=== PATIENT | female | born 1990 | race Caucasian/White ===

== ENCOUNTER 2025-05-25 07:50 | Emergency (ER) | payer OTHER ==
[~2025-05-25] VITALS: Ht 165.1 cm; Wt 72.6 kg
[2025-05-25 07:53] VITALS: BP 133/89
[2025-05-25] MEDS ORDERED: LIDOCAINE 2%-EPI 1:100,000 20 ML VIAL ONE (08:04)
[2025-05-25] MEDS ORDERED: TDAP DIPH,PERTUSS,TET VAC/PF 0.5 ML DISP.SYRIN IM ONE (08:05)
[2025-05-25] MEDS: LIDOCAINE 2%-EPI 1:100,000 20 ML VIAL IJ ONE (08:12)
[2025-05-25] MEDS: TDAP DIPH,PERTUSS,TET VAC/PF 0.5 ML DISP.SYRIN IM ONE (08:17)
[2025-05-25] MEDS ORDERED: NEOMY/BACITRA/POLYMYXIN B OINT UD PACKET TP ONE (08:47)
[2025-05-25] MEDS: NEOMY/BACITRA/POLYMYXIN B OINT UD PACKET TP ONE (08:48)
[2025-05-25 09:16] VITALS: BP 121/77; O2SAT 97
== END 2025-05-25 09:17 | disposition home or self-care (01) ==
LOC: ER 07:50
DX: S61.512A Laceration without foreign body of left wrist, initial encounter (principal); X58.XXXA Exposure to other specified factors, initial encounter; Y93.G1 Activity, food preparation and clean up; Y92.89 Other specified places as the place of occurrence of the external cause; Y99.8 Other external cause status
CPT/HCPCS: 90715; A4606; A4663

== ENCOUNTER 2025-06-05 08:15 | Emergency (ER) | payer OTHER ==
[~2025-06-05] VITALS: Ht 165.1 cm; Wt 72.6 kg
[2025-06-05 08:22] VITALS: BP 124/92
[2025-06-05 08:37] VITALS: BP 124/92; TEMP 97.8; O2SAT 97
== END 2025-06-05 08:37 | disposition home or self-care (01) ==
LOC: ER 08:15
DX: S61.512D Laceration without foreign body of left wrist, subsequent encounter (principal); Z48.02 Encounter for removal of sutures; X58.XXXD Exposure to other specified factors, subsequent encounter
CPT/HCPCS: A4606; A4663